=== PATIENT | male | born 1985 | race Caucasian/White ===

== ENCOUNTER 2020-04-19 12:26 | Outpatient (CLI) | payer MEDICAID ==
[~2020-04-19] VITALS: Ht 185.4 cm; Wt 90.7 kg
[2020-04-20] MEDS ORDERED: CARAFATE1 G1 ORAL (15:21)
[2020-04-20] MEDS ORDERED: PROTONIX40 MG ORAL (15:21)
--- NOTE | 2020-04-25 00:15 | Consultation ---
DATE OF CONSULTATION: 04/19/2020 CONSULTING PHYSICIAN: Conner Reeves M.D. CHIEF COMPLAINT: GERD. HISTORY OF PRESENT ILLNESS: This is a 34-year-old male with multiple medical problems , but GI acosta, he has evidence of esophagitis, depression, anxiety, GERD, IBS, history of colonic polyps, had endoscopy 2 times, one in 2016 and one in 2017, had a colonoscopy in 2016, apparently he had polyps at that time. I do not have the records, these are all per the patient. He is here for complaint of hematemesis. He had gone to [facility] for that at one point, had an endoscopy at that point, now complaining of acid reflux and heartburn. PAST MEDICAL HISTORY: 1. Esophagitis. 2. Depression. 3. Anxiety. 4. GERD. 5. IBS. 6. History of colonic polyps. MEDICATIONS: Protonix b.i.d., Carafate b.i.d., Lamictal, and clonazepam, which has been discontinued. FAMILY HISTORY: No family history of GI malignancies. SOCIAL HISTORY: The patient denies any tobacco, alcohol, or drug abuse. ALLERGIES: No known allergies. REVIEW OF SYSTEMS: A 10-point review of systems was performed and pertinent positives in HPI. PHYSICAL EXAMINATION: GENERAL: A well-developed male, in no acute distress. VITAL SIGNS: Height is 6 feet 1 inch, weight is 200 pounds. HEENT: Normocephalic, atraumatic. Sclerae anicteric. NECK: Supple. No evidence of obvious lymphadenopathy. CARDIOVASCULAR: Regular rate and rhythm. Plus S1, S2. No obvious murmur. ABDOMEN: Soft and nontender. No rebound. No guarding. No peritoneal sign. EXTREMITIES: No cyanosis. No clubbing. No edema. ASSESSMENT AND PLAN: A 34-year-old male with severe GERD, history of esophagitis, currently on PPI b.i.d. and Carafate b.i.d. without complete resolving of his symptoms. We added baclofen 10 mg p.o. at bedtime. We are also going to get authorization and scheduling for an endoscopy. Conner Reeves M.D. DR: Jorge JOB#: [id number] CC:
== END 2020-04-19 14:26 | disposition home or self-care (01) ==
LOC: PAN 12:26
DX: R10.9 Unspecified abdominal pain (principal); K21.9 Gastro-esophageal reflux disease without esophagitis; K58.9 Irritable bowel syndrome, unspecified
CPT/HCPCS: G0463

== ENCOUNTER 2020-07-13 13:15 | Outpatient (CLI) | payer MEDICAID ==
[~2020-07-13 13:15] MED LIST: CARAFATE1 G1 ORAL; PROTONIX40 MG ORAL
--- NOTE | 2020-07-13 14:09 | General Progress Note ---
Assessment/Plan Problem List: (1) Esophagitis ICD Codes: K20.9 - Esophagitis, unspecified SNOMED: 11942174 (2) GERD (gastroesophageal reflux disease) ICD Codes: K21.9 - Gastro-esophageal reflux disease without esophagitis SNOMED: 492867137 Assessment/Plan: s/p EGD ppi RTC prn Subjective ROS Limited/Unobtainable: Yes Allergies: Coded Allergies: No Known Allergies (Unverified , 04/20/20) Objective General Appearance: alert EENT: normal ENT inspection Neck: supple Cardiovascular: normal rate Respiratory/Chest: decreased breath sounds Abdomen: normal bowel sounds, non tender, soft Extremities: non-tender Conner Reeves MD Jul 13, 2020 14:09
== END 2020-07-13 15:15 | disposition home or self-care (01) ==
LOC: PAN 13:15
DX: K21.0 Gastro-esophageal reflux disease with esophagitis (principal)
CPT/HCPCS: 99212